=== PATIENT | female | born 1990 | race Caucasian/White ===

== ENCOUNTER 2018-11-02 10:15 | Emergency (ER) | payer OTHER ==
[2018-11-02 10:40] VITALS: BMI 34.0
[2018-11-02] MEDS ORDERED: Sodium Chloride 0.9% 1,000 ML IV STA (10:44)
[2018-11-02] MEDS ORDERED: DiphenhydrAMINE 50 mg/ml Inj IVP STA (10:44)
[2018-11-02 10:52] VITALS: RESP 18; TEMP 98.1
--- NOTE | 2018-11-02 11:19 | ED PDOC ---
Arrival/HPI - General Chief Complaint: Allergic Reaction Time Seen by Provider: 11/02/18 10:23 Historian: Patient - History of Present Illness Narrative History of Present Illness (Text): 11/02/18 11:34 A 28 year old female, with no significant past medical history, presents to the emergency department with a complaint of 3 day duration rash. The patient notes that she is unaware why she developed the rash. 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 She does not recall eating anything different that would have caused the rash. The patient reports that she visited a friend about 3 days ago who has cockroaches in the apartment, and touched a cockroach trap with adhesive on it, but washed her hands after touching it. The patient denies fevers, chills, headache, dizziness, chest pain, shortness of breath, dyspnea on exertion, cough, abdominal pain, nausea, vomiting, diarrhea, back pain, neck pain, urinary/bowel changes, or any other complaint. Time/Duration: Other (3 days) Symptom Course: Unchanged Activities at Onset: Rest, Light Context: Home Past Medical History - Provider Review Nursing Documentation Reviewed: Yes - Past History Past History: No Previous - Infectious Disease Hx of Infectious Diseases: None - Tetanus Immunization Tetanus Immunization: Unknown - Past Medical History Past Medical History: No Previous - Psychiatric Hx Substance Use: No - Past Surgical History Past Surgical History: No Previous - Anesthesia Hx Anesthesia: No Hx Anesthesia Reactions: No Hx Malignant Hyperthermia: No - Suicidal Assessment Feels Threatened In Home Enviroment: No Family/Social History - Physician Review Nursing Documentation Reviewed: Yes Family/Social History: No Known Family HX Smoking Status: Never Smoked Hx Alcohol Use: Yes Hx Substance Use: No Allergies/Home Meds Allergies/Adverse Reactions: Allergies No Known Allergies Allergy (Verified 09/09/16 15:00) Review of Systems - Physician Review All systems were reviewed & negative as marked: Yes - Review of Systems Constitutional: absent: Fevers Respiratory: absent: SOB, Cough Cardiovascular: absent: Chest Pain, VELAZQUEZ Gastrointestinal: absent: Abdominal Pain, Stool Changes, Diarrhea, Nausea, Vomiting Genitourinary Female: absent: Urine Output Changes Musculoskeletal: absent: Back Pain, Neck Pain Skin: Rash Neurological: absent: Headache, Dizziness Physical Exam Vital Signs Reviewed: Yes Vital Signs Temp Pulse Resp BP Pulse Ox 11/02/18 10:51 98.1 F 74 18 115/62 98 Temperature: Afebrile Blood Pressure: Normal Pulse: Regular Respiratory Rate: Normal Appearance: Positive for: Well-Appearing, Non-Toxic, Comfortable Pain Distress: None Mental Status: Positive for: Alert and Oriented X 3 - Systems Exam Head: Present: Atraumatic, Normocephalic Pupils: Present: PERRL Extroacular Muscles: Present: EOMI Conjunctiva: Present: Normal Mouth: Present: Moist Mucous Membranes, Other (No perioral edema) Pharnyx: No: Uvular Deviation Neck: Present: Normal Range of Motion Respiratory/Chest: Present: Clear to Auscultation, Good Air Exchange. No: Respiratory Distress, Accessory Muscle Use, Wheezes, Rales, Rhonchi Cardiovascular: Present: Regular Rate and Rhythm, Normal S1, S2. No: Murmurs Abdomen: No: Tenderness, Distention, Peritoneal Signs Back: Present: Normal Inspection Upper Extremity: Present: Normal Inspection. No: Cyanosis, Edema Lower Extremity: Present: Normal Inspection. No: Edema Neurological: Present: GCS=15, CN II-XII Intact, Speech Normal Skin: Present: Warm, Dry, Rashes (urticarial lesions noted to neck, upper extre mities bilaterally, and back. ), Normal Color Psychiatric: Present: Alert, Oriented x 3, Normal Insight, Normal Concentration Medical Decision Making ED Course and Treatment: 11/02/18 11:32 Impression: A 28 year old female presents to the emergency department with a complaint of 3 day duration rash. Plan: -- Benadryl --Pepcid --SOLU-Medrol --IV Fluids -- Reassess and disposition Prior Visits: Notes and results from previous visits were reviewed. Progress Notes: 11/02/18 12:07 Patient reevaluated with improvement in urticarial rash and pruritis. Lookup on [employer]act[employer] reveals Solumedrol is low risk for safety profile for lactating mothers. Mom is advised to "pump and dump" her breast milk for 4 hours after taking prednisone. She demonstrates understanding and will follow up with her - Medication Orders Current Medication Orders: Sodium Chloride (Sodium Chloride 0.9%) 1,000 mls @ 999 mls/hr IV .Q1H1M STA Stop: 11/02/18 11:44 Last Admin: 11/02/18 11:06 Dose: 999 mls/hr eMAR Start Stop Document 11/02/18 11:06 BB (Rec: 11/02/18 11:06 BB [id number]) Intravenous Solution Start Date 11/02/18 Start Time 11:06 Discontinued Medications Diphenhydramine HCl (Benadryl) 25 mg IVP STAT STA Stop: 11/02/18 10:45 Last Admin: 11/02/18 11:05 Dose: 25 mg IVP Administration Document 11/02/18 11:05 BB (Rec: 11/02/18 11:06 [id number]) Charges for Administration # of IVP Administrations 1 Famotidine (Pepcid) 20 mg IVP STAT STA Stop: 11/02/18 10:45 Last Admin: 11/02/18 11:05 Dose: 20 mg IVP Administration Document 11/02/18 11:05 BB (Rec: 11/02/18 11:05 BB [id number]) Charges for Administration # of IVP Administrations 1 Methylprednisolone (Solu-Medrol) 125 mg IVP STAT STA Stop: 11/02/18 10:45 Last Admin: 11/02/18 11:05 Dose: 125 mg IVP Administration Document 11/02/18 11:05 BB (Rec: 11/02/18 11:05 [id number]) Charges for Administration # of IVP Administrations 1 - Scribe Statement The provider has reviewed the documentation as recorded by the Scribe Martha Byrne Provider Scribe Attestation: All medical record entries made by the Scribe were at my direction and personally dictated by me. I have reviewed the chart and agree that the record accurately reflects my personal performance of the history, physical exam, medical decision making, and the department course for this patient. I have also personally directed, reviewed, and agree with the discharge instructions and disposition. Disposition/Present on Arrival - Present on Arrival Any Indicators Present on Arrival: No History of DVT/PE: No History of Uncontrolled Diabetes: No Urinary Catheter: No History of Decub. Ulcer: No History Surgical Site Infection Following: None - Disposition Have Diagnosis and Disposition been Completed?: Yes Diagnosis: Allergic reaction Disposition Time: 12:15 Patient Plan: Discharge Discharge Instructions (ExitCare): Allergy Skin Testing Print Language: HUNGARIAN Additional Instructions: All medical record entries made by the Scribe were at my direction and personally dictated by me. I have reviewed the chart and agree that the record accurately reflects my personal performance of the history, physical exam, medical decision making, and the department course for this patient. I have also personally directed, reviewed, and agree with the discharge instructions and disposition. 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
[2018-11-02 13:02] VITALS: BP 104/79; PULSE 72; O2SAT 100
== END 2018-11-02 13:04 | disposition home or self-care (01) ==
LOC: ED 10:15
DX: T78.40XA Allergy, unspecified, initial encounter (principal)
CPT/HCPCS: 81025; 96374; 96375; 99284; J1200; J2930; J7030